=== PATIENT | male | born 1975 | race Caucasian/White ===

== ENCOUNTER 2025-04-02 08:19 | Emergency (ER) | payer BC, SELFPAY ==
[2025-04-02] VITALS (8 sets, daily range): BP systolic 149–229; BP diastolic 91–157; PULSE 79–94; RESP 17–18; TEMP 36.7–36.8; O2SAT 96–97; BMI 31.1
--- NOTE | 2025-04-02 08:25 | EKG_ITS ---
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
--- NOTE | 2025-04-02 08:35 | PD.EDRME ---
Rapid Medical Screening Exam RME Arrival date/time: 04/02/25 08:19 Chief Complaint: Chest Pain Time Seen by Provider: 04/02/25 08:33 Vital signs: Vital Signs Temperature 98.2 F 04/02/25 08:28 Pulse Rate 94 04/02/25 08:28 Respiratory Rate 18 04/02/25 08:28 Blood Pressure 229/157 H 04/02/25 08:28 Pulse Oximetry (%) 97 04/02/25 08:28 Oxygen Delivery Method Room Air 04/02/25 08:28 RME Narrative: 49-year-old male with no contributing history here for 2 days of chest pain. States took 2 baby aspirin yesterday but none today. 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 Denies smoking or doing drugs. No diabetes. They state 5 years ago there was suggestion that he might need hypertension medicines but never went back to the doctor
--- NOTE | 2025-04-02 08:37 | XR_ITS ---
Examination: AP chest single view Technique: AP upright portable chest single view Date and time: April 02, 2025, 0856 hrs., Comparison March 06, 2020 Indications: Chest pain shortness of breath today. Findings: Mild prominence left ventricle. No pneumonia or pulmonary edema. Moderate osteopenia. Impression: No active disease.
[2025-04-02] MEDS: MORPHINE SULF INJ 10 MG/ML VIAL 4 MG IVP (08:51)
[2025-04-02 09:35] LABS: Basophils # (Auto) 0.1 Thou/mm3 (0.0-0.2); Basophils % (Auto) 1 % (0-2.5); Eosinophils # (Auto) 0.0 Thou/mm3 (0.0-0.5); Eosinophils % (Auto) 1 % (0-10); Hematocrit 47.1 % (41.0-53.0); Hemoglobin 16.7 g/dL (13.5-16.0); Immature Granulocytes Auto 0.02 Thou/mm3 (0.00-0.00); Lymphocytes # (Auto) 1.4 Thou/mm3 (1.0-4.8); Lymphocytes % (Auto) 27 % (10-50); Mean Corpuscular HGB Conc 35.5 g/dl (31.0-37.0); Mean Corpuscular Hemoglobin 34.1 pg (25.0-35.0); Mean Corpuscular Volume 96 fL (80-100); Monocytes # (Auto) 0.6 Thou/mm3 (0.0-0.8); Monocytes % (Auto) 11 % (0-12); Neutrophils # (Auto) 3.1 Thou/mm3 (1.8-7.7); Neutrophils % (Auto) 60 % (37-80); Nucleated Red Blood Cell # 0.00 Thou/mm3 (0.00-0.00); Nucleated Red Blood Cell % 0 /100 WBC (0); Platelet Count 225 Thou/mm3 (140-440); RDW Standard Deviation 42.5 fL (35.1-43.9); Red Blood Count 4.90 Miln/mm3 (4.50-5.90); White Blood Count 5.2 Thou/mm3 (3.8-10.6)
--- NOTE | 2025-04-02 09:52 | EDNOTE_ITS ---
ED Chest Pain RME/HPI General Chief Complaint: Chest Pain Stated Complaint: CHEST PAIN X 2DAYS, HTN Time Seen by Provider: 04/02/25 08:33 Arrival date/time: 04/02/25 08:19 Limitations: no limitations RME / HPI RME / HPI narrative: 49-year-old male with no contributing history here for 2 days of chest pain. States took 2 baby aspirin yesterday but none today. 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 Denies smoking or doing drugs. No diabetes. They state 5 years ago there was suggestion that he might need hypertension medicines but never went back to the doctor DR. ALEXANDER MAIN ED EVALUATION: 49 year old male with no stated medical history presents to the ED for evaluation of chest pain beginning two days ago. Described as aching in sensation that is located most to the left side that radiates to his left shoulder. Aggravated with certain movements. Patient additionally reports he had been practicing [employer]ot[employer] with his son several days back and feels it may be muscular; though denies any prior episodes of chest pain while practicing [employer]ot[employer]. States he has taken pain medication at home, including Aspirin, without improvement. Denies fevers, chills, sweats, cough, shortness of breath, abdominal pain, nausea, or vomiting. The patient also reports 5 years ago he had consulted with his PCP who reported blood pressure was elevated and may require medications. States he did not follow up nor started medications. Social hx: Chews tobacco, drinks alcohol daily. Additionally reports Family hx: Maternal- hypertension, Paternal- irregular cardiac rhythm, [place] @ 58yo Related Data Previous Rx's ?Medication ?Instructions ?Recorded nebivolol 10 mg tablet (Bystolic) 10 mg PO QDAY HTN #1 4 tabs 04/02/25 olmesartan 20 1 tab PO QDAY HTN #14 tabs 0 04/02/25 mg-hydrochlorothiazide 12.5 mg tablet (Benicar HCT) Allergies Allergy/AdvReac Type Severity Reaction Status Date / Time NKA* Allergy Uncoded 11/08/11 14:39 Review of Systems Review of Systems Systems Reviewed: All systems reviewed, normal except as documented Past Medical History Social History SMOKING STATUS: Never smoker ED Exam General Limitations: Present no limitations General appearance: Present alert and in no apparent distress Head Head exam: Present atraumatic, normocephalic and normal inspection Eye Eye exam: Present normal appearance, PERRL and EOMI ENT ENT exam: Present normal exam, normal oropharynx and mucous membranes moist Neck Neck exam: Present normal inspection, full ROM and trachea midline Chest Chest inspection: Present normal inspection and symmetric chest wall rise Respiratory Respiratory exam: Present normal lung sounds bilaterally Cardiovascular Cardiovascular exam: Present regular rate, normal rhythm and normal heart sounds Abdominal Exam Abdominal exam: Present soft and normal bowel sounds Extremities Exam Extremities exam: Present normal inspection and full ROM Back Exam Back exam: Present normal inspection and full ROM Neurological Exam Neurological exam: Present alert, oriented X3 and CN II-XII intact Psychiatric Psychiatric exam: Present normal affect and normal mood Skin Skin exam: Present warm, dry, intact and normal color Course Quality Measures none Orders Category Date Time 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 Care 04/02/25 09:27 Active Continuous Pulse Oximetry NOW Care 04/02/25 09:27 Completed EKG (ED ONLY) *Do not use* NOW Care 04/02/25 08:25 Completed IV [Insert IV] NOW Care 04/02/25 08:37 Completed Insert IV NOW Care 04/02/25 09:27 Active EKG (ED Only) Stat Exams 04/02/25 08:25 Draft XR chest 1V Stat Exams 04/02/25 08:37 Completed BNP [B-Type Natriuretic Peptide] Stat Lab 04/02/25 09:15 Completed CBC Stat Lab 04/02/25 09:15 Completed CMP [Comprehensive Metabolic Panel] Stat Lab 04/02/25 09:15 Completed Partial Thromboplastin Time Stat Lab 04/02/25 09:15 Completed Prothrombin Time with INR Stat Lab 04/02/25 09:15 Completed Troponin I Stat Lab 04/02/25 09:15 Completed Urinalysis Stat Lab 04/02/25 09:27 Ordered Aspirin Med 04/02/25 08:37 Discontinued 325 mg PO X1 ONE Morphine Inj Med 04/02/25 08:37 Discontinued 4 mg IVP X1 ONE cloNIDine HCL [Catapres] Med 04/02/25 09:28 Discontinued 0.1 mg PO X1 ONE cloNIDine HCL [Catapres] Med 04/02/25 10:46 Discontinued 0.1 mg PO X1 ONE hydrALAZINE INJ [Apresoline Inj] Med 04/02/25 09:28 Discontinued 10 mg IVP X1 ONE hydrALAZINE INJ [Apresoline Inj] Med 04/02/25 10:46 Discontinued 10 mg IVP X1 ONE Vital Signs Vital signs: Vital Signs Temperature 98.2 F 04/02/25 08:28 Pulse Rate 94 04/02/25 08:28 Respiratory Rate 18 04/02/25 08:28 Blood Pressure 229/157 H 04/02/25 08:28 Pulse Oximetry (%) 97 04/02/25 08:28 Oxygen Delivery Method Room Air 04/02/25 08:28 Pulse ox is 97% on room air which is adequate. Chest Pain MDM Narrative MDM Narrative:: Aimee Patel am scribing for and in the presence of Dr. Alexander. 1050: Patient received IV 10mg Hydralazine and IV 0.1mg Clonidine. Blood pressure 200/126. Will repeat medication dosage. 1158: Patient received an additional IV 10mg Hydralazine and IV 0.1mg Clonidine at 11:06 AM. Blood pressure at this time 149/93. Patient data External records reviewed:: None Clinical information provided by:: patient Social determinants that could affect healthcare access:: alcohol use Patient has the following chronic illnesses:: None reported How is presenting disease/condition affected by chronic disease/condition?: no chronic disease Evaluation data The following diagnostics were reviewed and interpreted by me:: lab results, radiology exam(s) and EKG tracing(s) (04/02/2025 @ 0833 AM. NSR, rate 78, no acute changes, MD 171ms, QRS 192ms) Lab and/or radiology exams considered but not ordered:: None Interpretation Summary: Ordering Physician: Nava Parham PA-C Date of Service: 04/02/25 Procedure(s): XR chest 1V Accession Number(s): [id number] cc: Nava Parham PA-C; Daron Nicholas MD; NO PRIMARY/FAMILY,PHYSICIAN~ Examination: AP chest single view Technique: AP upright portable chest single view Date and time: April 02, 2025, 0856 hrs., Comparison March 06, 2020 Indications: Chest pain shortness of breath today. Findings: Mild prominence left ventricle. No pneumonia or pulmonary edema. Moderate osteopenia. Impression: No active disease. Dictated By: Daron Nicholas MD Signed By: <Electronically signed by Daron Nicholas MD in OV> 04/02/25 1018 Medications / Prescriptions Medications or Prescriptions considered but not ordered:: None Medication administrations:: Medication Administration History Discontinued Medications Aspirin (Aspirin 325 Mg Tablet) 325 mg PO X1 ONE Stop: 04/02/25 08:38 Last Admin: 04/02/25 08:51 Dose: 325 mg Documented By: TM Clonidine (Clonidine Hcl 0.1 Mg Tablet) 0.1 mg PO X1 ONE Stop: 04/02/25 09:29 Last Admin: 04/02/25 10:02 Dose: 0.1 mg Documented By: TM Clonidine (Clonidine Hcl 0.1 Mg Tablet) 0.1 mg PO X1 ONE Stop: 04/02/25 10:47 Last Admin: 04/02/25 11:05 Dose: 0.1 mg Documented By: TM Hydralazine HCl (Hydralazine Inj 20 Mg/Ml Vial) 10 mg IVP X1 ONE Stop: 04/02/25 09:29 Last Admin: 04/02/25 10:02 Dose: 10 mg Documented By: TM Hydralazine HCl (Hydralazine Inj 20 Mg/Ml Vial) 10 mg IVP X1 ONE Stop: 04/02/25 10:47 Last Admin: 04/02/25 11:06 Dose: 10 mg Documented By: TM Morphine Sulfate (Morphine Sulf Inj 10 Mg/Ml Vial) 4 mg IVP X1 ONE Stop: 04/02/25 08:38 Last Admin: 04/02/25 08:51 Dose: 4 mg Documented By: TM See above Consultations Consultation(s) initiated? (list below): No Diagnosis Chest Pain Differential Diagnosis: stable angina, unstable angina pectoris, atypical chest pain, st elevation myocardial infarction, costochondritis, chest pain and biliary colic Most likely diagnosis given after review of the tests above:: Hypertension Chest pain Admission Indicated Admission indicated?: not indicated Admission Request Was there a request for admission?: No Disposition Plan Disposition Plan: Discharge Discharge Attestation Discharge Attestation: The patient and all family members were given an opportunity to ask questions and understood the discharge instructions. Discharge instructions specifically effects, indications for sooner follow up or return to the emergency department, and the expected course of current diagnosis. Patient condition: Stable Discharge Plan Plan Patient Disposition: HOME (Self Care) Patient condition on transfer: Stable Prescriptions/Referrals Prescriptions/Med Rec: New olmesartan-hydrochlorothiazide [Benicar HCT] 20-12.5 mg tablet 1 tab PO QDAY MDD 1 Qty: 14 0RF nebivolol [Bystolic] 10 mg tablet 10 mg PO QDAY MDD 1 Qty: 14 0RF Referrals: No Primary/Family,Physician [Primary Care Provider] - In 1 week Problem List Clinical Impression: Hypertension, Chest pain Patient/Caregiver Discharge Instructions Other Activity Instructions:: Rest times the next 4 days until you see cardiology Education Materials: Blood Pressure Check Steps, ED Chest Pain, Uncertain Cause, ED High Blood Pressure ... Additional Instructions: Follow-up with cardiology Dr. Cain [phone]. Take your blood pressure medicines as directed. Return to the emergency room for any concerns Print Language: Arabic Stand Alone Forms: Fátima Award Info., Patient Portal Info Letter
[2025-04-02 10:00] LABS: INR 1.0 (0.9-1.3); Partial Thromboplastin Time 26.2 Seconds (22.0-36.0); Prothrombin Time 11.3 Seconds (9.0-12.2)
[2025-04-02] MEDS: hydrALAZINE INJ 20 MG/ML VIAL 10 MG IVP ×2 (10:02→11:06)
[2025-04-02 10:03] LABS: B-Type Natriuretic Peptide 21 pg/mL (0-100)
[2025-04-02 10:08] LABS: Alanine Aminotransferase 93 U/L (10-49); Albumin, Serum 4.8 gm/dL (3.5-5.0); Albumin/Globulin Ratio 1.8 (1.2-2.2); Alkaline Phosphatase 58 U/L (46-116); Anion Gap 11 (7-16); Aspartate Amino Transferase 64 U/L (0-34); BUN/Creatinine Ratio 8 Ratio (12-20); Bilirubin,Total 1.3 mg/dL (0.3-1.2); Blood Urea Nitrogen 11 mg/dL (9-23); Calcium 10.0 mg/dL (8.3-10.6); Calcium (Corrected) 10.0 mg/dL (8.5-10.1); Carbon Dioxide 26.6 mMol/L (20.0-31.0); Chloride 101 mMol/L (98-107); Creatinine (Component) 1.3 mg/dL (0.6-1.3); Estimated Creatinine Clearance 84.9 mL/min (>60); Globulin 2.7 gm/dL (2.3-3.5); Glucose 97 mg/dL (74-106); Osmolality,Calculated 276 (275-295); Potassium 4.1 mMol/L (3.4-5.1); Sodium 139 mMol/L (136-145); Total Protein 7.5 gm/dL (5.7-8.2); Troponin I < 0.020 ng/mL (0.0-0.045); eGFR > 60 See Note
== END 2025-04-02 13:56 | disposition home or self-care (01) ==
PROVIDERS: Physician Assistant; Emergency Provider Family Medicine
DX: R07.9 Chest pain, unspecified (principal); I10 Essential (primary) hypertension; R06.02 Shortness of breath; Z72.0 Tobacco use
CPT/HCPCS: 36415; 71045; 80053; 81001; 83880; 84484; 85025; 85610; 85730; 93005; 96374; 96375; 96376; 99284; J0360; J2270; A9270